=== PATIENT | male | born 1975 | race Two or more races ===

== ENCOUNTER 2017-10-13 07:07 | Emergency (ER) | payer MEDICAID ==
[~2017-10-13] VITALS: Ht 160 cm; Wt 68.0 kg
--- NOTE | 2017-10-13 08:30 | Emergency Room Report ---
History of Present Illness General Chief Complaint: Lower Extremity Injury Source: Patient Present Illness HPI This 42M homeless male walks a lot, minimal opportunity to shower. C/o blister right heel. No other issue. No injury. No trauma, no fever, no shortness of breath, no travel history, no leg swelling, no chest pain, no diaphoresis, no exertional complaints, no nausea, no vomiting, no diarrhea, no abdominal pain. Tolerating po fine, normal urinary output, normal bm. No syncope, LOC, dizziness , lightheadedness, headache. Nursing Documentation-H Hx Diabetes: Yes Review of Systems Constitutional: Denies: fever Eye: Denies: acuity changes Respiratory: Denies: cough, shortness of breath Cardiovascular: Denies: chest pain Gastrointestinal: Denies: nausea, vomiting Skin: Denies: rash Neurological: Denies: headache Physical Exam Vital Signs Date Time Temp Pulse Resp B/P (MAP) Pulse Ox O2 Delivery O2 Flow Rate FiO2 10/13/17 07:11 98.1 95 16 114/74 96 Room Air 98.1 General Appearance: well appearing, no apparent distress Head: normocephalic, atraumatic ENT: hearing grossly normal, normal voice Neck: full range of motion, supple Respiratory: no respiratory distress, speaking full sentences Musculoskeletal: no calf tenderness, other - blister right heel no cellulitis Neurologic: alert, normal gait Psychiatric: mood/affect normal Skin: no rash Medical Decision Making Diagnostic Impression: Primary Impression: Blister Last Vital Signs Date Time Temp Pulse Resp B/P (MAP) Pulse Ox O2 Delivery O2 Flow Rate FiO2 10/13/17 07:11 98.1 95 16 114/74 96 Room Air 98.1 Disposition: HOME, SELF-CARE Condition: Stable Tony Flores M.D. Oct 13, 2017 08:30
[2017-10-13 08:58] VITALS: BP 114/74
== END 2017-10-13 09:00 | disposition home or self-care (01) ==
LOC: EMR 08:09
DX: S90.821A Blister (nonthermal), right foot, initial encounter (principal); X58.XXXA Exposure to other specified factors, initial encounter; Y93.01 Activity, walking, marching and hiking; Y92.9 Unspecified place or not applicable; Z59.0 Homelessness
CPT/HCPCS: 99282